=== PATIENT | male | born 1950 | race Caucasian/White ===

== ENCOUNTER 2016-08-22 11:39 | Emergency (ER) | payer OTHER ==
[~2016-08-22] VITALS: Ht 185.4 cm; Wt 111.0 kg
[~2016-08-22 11:39] MED LIST: CLIN1CAP5 PO; DIOV40TA PO
[2016-08-22 11:46] VITALS: BP 206/106; PULSE 77; RESP 18; TEMP 99.2; O2SAT 98
[2016-08-22] MEDS ORDERED: VALS1TAB63 PO (11:58)
[2016-08-22] MEDS ORDERED: DIAZ2TAB PO (11:58)
[2016-08-22] MEDS ORDERED: SODIUM CHLORIDE 0.9% FLUSH 5 ML FLUSH IVF PRN (12:15)
[2016-08-22] MEDS ORDERED: MORPHINE SULFATE 4 MG/ML INJ IV PUSH ONE (12:15)
[2016-08-22 12:35] LABS: AUTOMATED NEUTROPHIL # 5.2 TH/MM3 (1.8-7.7); BASOPHIL # 0.1 TH/MM3 (0-0.2); EOSINOPHIL # 0.1 TH/MM3 (0-0.4); EOSINOPHIL % 0.8 % (0.0-4.0); HEMATOCRIT 48.7 % (39.0-51.0); HEMO FLAGS DIFF FINAL; LYMPH % 18.3 % (9.0-44.0); LYMPHOCYTE # 1.3 TH/MM3 (1.0-4.8); MEAN CELL VOLUME 87.4 FL (80.0-100.0); MEAN CORPUSCULAR HEMOGLOBIN 29.4 PG (27.0-34.0); MEAN CORPUSCULAR HGB CONC 33.6 % (32.0-36.0); MONO % 7.6 % (0.0-8.0); NEUT % 72.3 % (16.0-70.0); PLATELET COUNT 239 TH/MM3 (150-450); RED BLOOD COUNT 5.57 MIL/MM3 (4.50-5.90); RED CELL DISTRIBUTION WIDTH 13.4 % (11.6-17.2); WHITE BLOOD COUNT 7.3 TH/MM3 (4.0-11.0)
[2016-08-22 12:38] LABS: BLOOD, URINE SMALL (NEG); GLUCOSE,URINE NEG (NEG); KETONE, URINE NEG (NEG); NITRITE,URINE NEG (NEG)
[2016-08-22 12:39] LABS: METHOD OF COLLECTION CLEAN CATCH; URINE COLOR YELLOW (YELLW/STRAW)
--- NOTE | 2016-08-22 12:40 | PD ---
HPI Chief Complaint: Hypertension Time Seen by Provider: 12:03 Travel History International Travel<30 days: No Contact w/Intl Traveler<30days: No Traveled to known affect area: No History of Present Illness HPI Patient is a 66-year-old male who presents to emergency room with complaints of chronic hypertension as well as chronic pain to the right side of his neck. Patient reports that 7 months ago, he was diagnosed with shingles to the right side of his neck. Reports that he developed postherpetic neuralgias and has had severe pain to his neck for the past 7 months. Patient reports that he hasn 't follow-up with neurologist for this pain, reports that he had an appointment today and was told to go to the emergency room as his blood pressure was elevated. Patient reports that he has history of elevated blood pressures, reports that he does take valsartan daily. Patient reports that he has been compliant with his medications. Patient reports no headache or dizziness or vision changes at this time. Patient reports "I don't know why they sent me to the emergency room because I always have pain to his neck and I have history of high blood pressure." Patient denies chest pain or shortness of breath at this time. Patient reports that "my blood pressure is high because I am so much pain to my neck." Patient reports that his doctor prescribed him with a new medication for his postherpetic neuralgia today. Patient denies chest pain or shortness of breath. Patient denies fevers or chills. Patient reports chronic pain to his right side of his neck. Also reports chronic pain to his neck bc of his history of sebaceous cyst to the right side of his neck which was resected by surgery a few months ago. PFSH Past Medical History Hypertension: Yes Neurologic: Yes (Tourette's) Integumentary: Yes (HX shingle's) Tetanus Vaccination: < 5 Years Influenza Vaccination: No Past Surgical History Surgical History: No Previous Surgery Social History Alcohol Use: No Tobacco Use: No Substance Use: No Allergies-Medications (Allergen,Severity, Reaction): Coded Allergies: Aspirin (Verified Allergy, Severe, 08/22/16) Sulfa (Verified Allergy, Severe, 08/22/16) Reported Meds & Prescriptions Reported Meds & Active Scripts Active Reported Diazepam 2 Mg Tab 2 Mg PO TID PRN Review of Systems General / Constitutional: No: Fever Eyes: No: Visual changes HENT: No: Headaches Cardiovascular: No: Chest Pain or Discomfort Respiratory: No: Shortness of Breath Gastrointestinal: No: Abdominal Pain Genitourinary: No: Dysuria Musculoskeletal: No: Pain Skin: No Rash Neurologic: No: Weakness Psychiatric: No: Depression Endocrine: No: Polydipsia Hematologic/Lymphatic: No: Easy Bruising Physical Exam Narrative GENERAL: nad, nontoxic SKIN: Warm and dry. HEAD: Atraumatic. Normocephalic. EYES: Pupils equal and round. No scleral icterus. No injection or drainage. ENT: No nasal bleeding or discharge. Mucous membranes pink and moist. NECK: Trachea midline. No JVD. CARDIOVASCULAR: Regular rate and rhythm. No murmur appreciated. RESPIRATORY: No accessory muscle use. Clear to auscultation. Breath sounds equal bilaterally. GASTROINTESTINAL: Abdomen soft, non-tender, nondistended. Hepatic and splenic margins not palpable. MUSCULOSKELETAL: No obvious deformities. No clubbing. No cyanosis. No edema. NEUROLOGICAL: Awake and alert. No obvious cranial nerve deficits. Motor grossly within normal limits. Normal speech. Cranial nerves to 12 grossly intact with no obvious deficits PSYCHIATRIC: Patient anxious Data Data Last Documented VS Vital Signs Date Time Temp Pulse Resp B/P Pulse Ox O2 Delivery O2 Flow Rate FiO2 08/22/16 13:05 70 18 172/90 98 Room Air 08/22/16 11:46 99.2 Orders Electrocardiogram (08/22/16 12:12) Complete Blood Count With Diff (08/22/16 12:12) Comprehensive Metabolic Panel (08/22/16 12:12) Ecg Monitoring (08/22/16 12:12) Iv Access Insert/Monitor (08/22/16 12:12) Oximetry (08/22/16 12:12) Sodium Chloride 0.9% Flush (Ns Flush) (08/22/16 12:15) Urinalysis - C+S If Indicated (08/22/16 12:12) Morphine Inj (Morphine Inj) (08/22/16 12:15) Labs Laboratory Tests Test 08/22/16 12:25 White Blood Count 7.3 TH/MM3 Red Blood Count 5.57 MIL/MM3 Hemoglobin 16.4 GM/DL Hematocrit 48.7 % Mean Corpuscular Volume 87.4 FL Mean Corpuscular Hemoglobin 29.4 PG Mean Corpuscular Hemoglobin 33.6 % Concent Red Cell Distribution Width 13.4 % Platelet Count 239 TH/MM3 Mean Platelet Volume 7.6 FL Neutrophils (%) (Auto) 72.3 % Lymphocytes (%) (Auto) 18.3 % Monocytes (%) (Auto) 7.6 % Eosinophils (%) (Auto) 0.8 % Basophils (%) (Auto) 1.0 % Neutrophils # (Auto) 5.2 TH/MM3 Lymphocytes # (Auto) 1.3 TH/MM3 Monocytes # (Auto) 0.6 TH/MM3 Eosinophils # (Auto) 0.1 TH/MM3 Basophils # (Auto) 0.1 TH/MM3 CBC Comment DIFF FINAL Differential Comment Urine Collection Type CLEAN CATCH Urine Color YELLOW Urine Turbidity CLEAR Urine pH 6.0 Urine Specific [place] 1.017 Urine Protein 100 mg/dL Urine Glucose (UA) NEG mg/dL Urine Ketones NEG mg/dL Urine Occult Blood SMALL Urine Nitrite NEG Urine Bilirubin NEG Urine Leukocyte Esterase NEG Urine RBC 0-3 /hpf Microscopic Urinalysis Comment CULT NOT INDICATED Sodium Level 141 MEQ/L Potassium Level 4.3 MEQ/L Chloride Level 104 MEQ/L Carbon Dioxide Level 29.9 MEQ/L Anion Gap 7 MEQ/L Blood Urea Nitrogen 15 MG/DL Creatinine 0.87 MG/DL Estimat Glomerular Filtration 88 ML/MIN Rate Random Glucose 99 MG/DL Calcium Level 8.7 MG/DL Total Bilirubin 0.6 MG/DL Aspartate Amino Transf 19 U/L (AST/SGOT) Alanine Aminotransferase 12 U/L (ALT/SGPT) Alkaline Phosphatase 69 U/L Total Protein 7.7 GM/DL Albumin 3.9 GM/DL [facility] Medical Decision Making Medical Screen Exam Complete: Yes Emergency Medical Condition: Yes Interpretation(s) EKG at 1218: Normal sinus rhythm at 71 bpm, QT/QTc 376/395, left anterior fascicular block Vital Signs Date Time Temp Pulse Resp B/P Pulse Ox O2 Delivery O2 Flow Rate FiO2 08/22/16 11:46 99.2 77 18 206/106 98 Differential Diagnosis Accelerated hypertension, chronic neck pain secondary to postherpetic neuralgia , arrhythmia Narrative Course Patient is a 66-year-old male with history of hypertension, sebaceous cyst to the right side of his neck, postherpetic neuralgia for the past 7 months, presents to emergency room with complaints of chronic pain to his right side of his neck as well as accelerated hypertension. Patient has been compliant with his hypertension medications which including valsartan 40 mg, reports that he was sent to the ER for evaluation of htn. Patient with no headache or dizziness at this time. Patient with no vision changes, no nausea or vomiting. Patient with no chest pain or shortness of breath. Plan to obtain an EKG, CBC , BMP, UA and evaluate for end organ damage. Patient most likely with accelerated hypertension from his chronic neck pain. Plan to treat pt's pain and re-evaluate. Patient follows with Dr Wren, will have patient follow up with him in office. Blood pressure improved after pain medicine administered, all labs and all studies reviewed with patient in detail. Signs and symptoms of when to return to emergency room reviewed with patient. Patient will follow with his primary care doctor and area development consultant and return to ER as needed. Patient understands need for repeat blood pressure check tomorrow at his primary care doctor's office or area development consultant office Diagnosis Primary Impression: Hypertension Qualified Code: I10 - Essential hypertension Patient Instructions: General Instructions Additional Instructions: Please follow up with your primary care doctor and area development consultant Return to ER as needed Please take all your medications as prescribed Disposition: 01 DISCHARGE HOME Condition: Stable Janis Carranza DO Aug 22, 2016 12:40
[2016-08-22 12:42] LABS: COMMENT (UR) CULT NOT INDICATED; CULTURE IF INDICATED CULT NOT INDICATED; RBC, URINE 0-3 /hpf (0-3)
[2016-08-22 12:43] LABS: CHLORIDE 104 MEQ/L (98-107); POTASSIUM 4.3 MEQ/L (3.5-5.1); SODIUM (NA) 141 MEQ/L (136-145)
[2016-08-22 12:45] VITALS: O2SAT 98
[2016-08-22 12:46] LABS: ANION GAP 7 MEQ/L (5-15); BICARBONATE 29.9 MEQ/L (21.0-32.0)
[2016-08-22 12:47] LABS: BLOOD UREA NITROGEN 15 MG/DL (7-18)
[2016-08-22 12:50] LABS: ALT (GPT) 12 U/L (12-78); AST (GOT) 19 U/L (15-37); GLOMERULAR FILTRATION RATE 88 ML/MIN (>89)
[2016-08-22 12:51] LABS: TOTAL BILIRUBIN ADULT 0.6 MG/DL (0.2-1.0)
[2016-08-22 12:52] LABS: ALKALINE PHOSPHATASE 69 U/L (45-117)
[2016-08-22 13:05] VITALS: BP 172/90; PULSE 70; RESP 18; O2SAT 98
--- NOTE | 2016-08-23 16:11 | EKG ---
Date Performed: 08/22/2016 Time Performed: 12:18:24 PTAGE: 66 years EKG: Sinus rhythm Left anterior fascicular block Borderline ECG NO PREVIOUS TRACING DOCTOR: Kushal Da Silva Interpretating Date/Time 08/23/2016 16:10:23
== END 2016-08-22 13:20 | disposition home or self-care (01) ==
LOC: PHED 11:39
DX: I10 Essential (primary) hypertension (principal); F95.2 Tourette's disorder
CPT/HCPCS: 80053; 81001; 85025; 93005; 96374; 99283; J2270

== ENCOUNTER 2016-10-26 11:22 | Emergency (ER) | payer OTHER ==
[~2016-10-26] VITALS: Ht 185.4 cm; Wt 104.7 kg
[~2016-10-26 11:22] MED LIST changes: -CLIN1CAP5 PO; +DIAZ2TAB PO; -DIOV40TA PO; +VALS1TAB63 PO
[2016-10-26 11:25] VITALS: BP 168/100; PULSE 81; RESP 16; TEMP 98.7; O2SAT 98
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
== END 2016-10-26 12:03 | disposition home or self-care (01) ==
LOC: PHEFT 11:22
DX: S16.1XXA Strain of muscle, fascia and tendon at neck level, initial encounter (principal); B02.9 Zoster without complications; I10 Essential (primary) hypertension; F95.2 Tourette's disorder; V43.52XA Car driver injured in collision with other type car in traffic accident, initial encounter; Y93.9 Activity, unspecified; Y92.9 Unspecified place or not applicable; Y99.9 Unspecified external cause status
CPT/HCPCS: 99283